=== PATIENT | female | born 1990 | race Caucasian/White ===

== ENCOUNTER 2018-04-26 14:48 | Inpatient (IN) ==
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
[2018-04-26 16:42] LABS: Bilirubin,Urine Negative (Negative); Blood,Urine Negative (Negative); Clarity,Urine Cloudy (Clear); Color,Urine Yellow (Yellow); Glucose,Urine (UA) Normal (Normal); Ketones,Urine Negative (Negative); Leukocyte Esterase,Urine Negative (Negative); Nitrite,Urine Negative (Negative); PH,Urine 6.5 pH Units (5.0-8.0); Protein,Urine Negative (Neg-Trace); Specific Gravity,Urine 1.018 (1.010-1.025); Urobilinogen,Urine Normal (Normal)
[2018-04-26 16:44] LABS: Bacteria,Urine Few per hpf (None-Few); Hyaline Casts,Urine None Seen per lpf (None-Few); RBC,Urine 0-3 per hpf (0-3); Squamous Epithelial Cell,Urine Many per lpf (None-Few); WBC,Urine 0-3 per hpf (0-3)
[2018-04-26 16:48] LABS: Amphetamine Screen,Urine Positive ng/mL (Cutoff=1000); Barbiturate Screen,Urine Negative ng/mL (Cutoff=200); Benzodiazepines Screen,Urine Negative ng/mL (Cutoff=200); Cannabinoid Screen,Urine Negative ng/mL (Cutoff = 50); Cocaine Screen,Urine Negative ng/mL (Cutoff= 300); Opiate Screen,Urine Negative ng/mL (Cutoff=300); Phencyclidine Screen,Urine Negative ng/mL (Cutoff=25)
[2018-04-26 17:18] LABS: Basophils # 0.1 K/mcL (0.0-0.2); Basophils % 0.5 %; Eosinophils # 0.2 K/mcL (0.0-0.6); Eosinophils % 1.3 %; Hematocrit 36.6 % (35.3-44.9); Hemoglobin 12.2 g/dL (11.5-15.4); Immature Granulocytes % 0.2 % (0-4); Lymphocytes # 2.6 K/mcL (0.6-4.6); Mean Corpuscular HGB Conc 33.3 g/dL (31.6-35.5); Mean Corpuscular Hemoglobin 28.7 pg (28.0-33.3); Mean Corpuscular Volume 86.1 fL (83.0-100.0); Mean Platelet Volume 11.8 fL (9.4-12.4); Monocytes # 0.7 K/mcL (0.0-1.3); Monocytes % 5.9 %; Neutrophils # 7.7 K/mcL (1.6-8.9); Platelet Count 240 K/mcL (140-400); Red Blood Count 4.25 M/mcL (3.82-4.97); Red Cell Distribution Width 14.4 % (11.5-14.5); Segmented Neutrophils % 69.1 %
[2018-04-26 17:25] LABS: Acetaminophen < 10 mcg/mL (10-20); BUN/Creatinine Ratio 17 (6-26); Blood Urea Nitrogen 9 mg/dL (6-20); Calcium 9.1 mg/dL (8.6-10.3); Carbon Dioxide 26 mEq/L (23-29); Chloride 103 mEq/L (98-107); Ethanol < 10 mg/dL (Less than 10); Glucose 98 mg/dL (70-105); Osmolality,Calculated 283 (280-300); Potassium 3.8 mEq/L (3.5-5.1); Salicylate < 2.5 mg/dL (15.0-30.0); Sodium 137 mEq/L (136-145); eGFR For Non-African Americans > 60 (> 60)
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
[2018-04-26] MEDS ORDERED: traZODone 50 MG TABLET PO PRN (21:19)
[2018-04-26] MEDS ORDERED: Haloperidol Lactate 5 MG/ML VIAL IM PRN (21:19)
[2018-04-26] MEDS ORDERED: *HR* LORazepam 2 MG/ML VIAL IM PRN (21:19)
[2018-04-26] MEDS ORDERED: Mag Hydrox/Al Hydrox/Simeth 30 ML UDC PO PRN (21:19)
[2018-04-26] MEDS ORDERED: MOM Conc 10 ML UD.LIQ PO PRN (21:19)
[2018-04-26] MEDS ORDERED: *HR* LORazepam 1 MG TABLET PO PRN (21:19)
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
[2018-04-27] MEDS: Gabapentin 300 MG CAPSULE PO SCH ×2 (14:33→20:17)
[2018-04-27] MEDS: *HR* Buprenorphine HCl 8 MG TAB.SUBL SL SCH (14:33)
[2018-04-27] MEDS: Ibuprofen 400 MG TABLET PO PRN (21:38)
[2018-04-28] MEDS: Gabapentin 300 MG CAPSULE PO SCH ×3 (08:58→20:32)
[2018-04-28] MEDS: *HR* Buprenorphine HCl 8 MG TAB.SUBL SL SCH (08:58)
[2018-04-28] MEDS: Ibuprofen 400 MG TABLET PO PRN ×2 (09:41→17:18)
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
[2018-04-28] MEDS ORDERED: Baclofen 10 MG TABLET PO PRN (16:17)
[2018-04-28] MEDS: Baclofen 10 MG TABLET PO PRN (18:46)
[2018-04-28] MEDS: hydrOXYzine pamoate 25 MG CAPSULE PO PRN (20:33)
[2018-04-29] MEDS: Gabapentin 300 MG CAPSULE PO SCH ×3 (09:01→20:12)
[2018-04-29] MEDS: *HR* Buprenorphine HCl 8 MG TAB.SUBL SL SCH ×2 (09:01→20:12)
[2018-04-29] MEDS: Venlafaxine XR (24 HR) 75 MG CAP.ER.24H PO SCH (09:01)
[2018-04-29] MEDS: Ibuprofen 400 MG TABLET PO PRN ×2 (10:13→20:12)
[2018-04-29] MEDS: Baclofen 10 MG TABLET PO PRN ×2 (10:14→14:55)
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
[2018-04-29] MEDS: hydrOXYzine pamoate 25 MG CAPSULE PO PRN ×2 (14:44→20:12)
[2018-04-30] MEDS: Venlafaxine XR (24 HR) 75 MG CAP.ER.24H PO SCH (09:32)
[2018-04-30] MEDS: Gabapentin 300 MG CAPSULE PO SCH ×3 (09:32→20:27)
[2018-04-30] MEDS: *HR* Buprenorphine HCl 8 MG TAB.SUBL SL SCH ×2 (09:33→20:27)
[2018-04-30] MEDS: Ibuprofen 400 MG TABLET PO PRN ×2 (10:39→20:28)
[2018-04-30] MEDS: hydrOXYzine pamoate 25 MG CAPSULE PO PRN ×2 (11:57→20:28)
[2018-04-30] MEDS: Baclofen 10 MG TABLET PO PRN (11:58)
[2018-04-30] MEDS ORDERED: Baclofen 10 MG TABLET PO PRN (17:12)
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
[2018-04-30] MEDS: Topiramate 25 MG TABLET PO SCH (20:28)
[2018-05-01] MEDS: Gabapentin 300 MG CAPSULE PO SCH (09:03)
[2018-05-01] MEDS: Topiramate 25 MG TABLET PO SCH (09:04)
[2018-05-01] MEDS: *HR* Buprenorphine HCl 8 MG TAB.SUBL SL SCH (09:04)
[2018-05-01] MEDS: Venlafaxine XR (24 HR) 75 MG CAP.ER.24H PO SCH (09:04)
[2018-05-01 09:09] VITALS: BP 106/68
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
== END 2018-05-01 12:45 | disposition home or self-care (01) | DRG 755 ==
LOC: EMEROOARM 14:48 → 1ANU 19:25
PROVIDERS: ADMIT General Practice; ATTEND General Practice

== ENCOUNTER 2019-07-21 23:32 | Observation (INO) ==
[2019-07-22] MEDS ORDERED: Naloxone 0.4 MG/ML INJ IVP PRN (02:53)
[2019-07-22] MEDS ORDERED: Ondansetron 4 MG/2 ML VIAL IVP PRN (02:53)
[2019-07-22] MEDS ORDERED: Ondansetron ODT 4 MG TAB.RAPDIS SL PRN (02:53)
[2019-07-22] MEDS ORDERED: 0.9 % Sodium Chloride 1,000 ML IVC SCH (03:00)
[2019-07-22] MEDS: *HR* Promethazine 25 MG/ML VIAL IVP PRN ×3 (03:39→16:36)
[2019-07-22] MEDS: Ampicillin/Sulbactam 3,000 MG in 0.9 % Sodium Chloride Mini Bag 100 ML IVPB SCH ×4 (03:45→21:57)
[2019-07-22 03:52] LABS: Basophils % 0.3 %; Eosinophils # 0.2 K/mcL (0.0-0.6); Eosinophils % 1.5 %; Hematocrit 36.5 % (35.3-44.9); INR 1.1; Immature Granulocytes % 0.2 % (0-4); Lymphocytes # 2.9 K/mcL (0.6-4.6); Mean Corpuscular HGB Conc 32.9 g/dL (31.6-35.5); Mean Corpuscular Hemoglobin 29.2 pg (28.0-33.3); Mean Corpuscular Volume 88.8 fL (83.0-100.0); Mean Platelet Volume 11.2 fL (9.4-12.4); Monocytes # 0.7 K/mcL (0.0-1.3); Monocytes % 6.6 %; Neutrophils # 6.6 K/mcL (1.6-8.9); Platelet Count 302 K/mcL (140-400); Prothrombin Time 12.3 Seconds (9.4-12.1); Red Blood Count 4.11 M/mcL (3.82-4.97); Red Cell Distribution Width 12.7 % (11.5-14.5); Segmented Neutrophils % 63.4 %; White Blood Count 10.4 K/mcL (4.3-11.1)
[2019-07-22 04:07] LABS: % Iron Saturation 12 % (15-50); Alanine Aminotransferase 9 Units/L (7-52); Albumin 3.9 g/dL (3.5-5.7); Albumin/Globulin Ratio 1.6 (1.1-2.2); Alkaline Phosphatase 41 Units/L (34-104); Aspartate Amino Transferase 11 Units/L (13-39); BUN/Creatinine Ratio 15 (6-26); Bilirubin,Total 0.3 mg/dL (0.3-1.0); Blood Urea Nitrogen 10 mg/dL (6-20); Calcium 8.7 mg/dL (8.6-10.3); Carbon Dioxide 27 mEq/L (23-29); Chloride 106 mEq/L (98-107); Chol/HDL Ratio 3.3 (0-4.9); Cholesterol 163 mg/dL (< 200); Globulin 2.5 g/dL (2.4-3.5); Glucose 101 mg/dL (70-105); HDL Cholesterol 50 mg/dL (40-59); Iron 51 mcg/dL (50-170); LDL Cholesterol,Calculated 81 mg/dL (0-99); Magnesium 1.6 mg/dL (1.6-2.6); Osmolality,Calculated 291 (280-300); Phosphorous 2.7 mg/dL (2.7-4.5); Potassium 3.5 mEq/L (3.5-5.1); Sodium 141 mEq/L (136-145); Total Protein 6.4 g/dL (6.4-8.9); Transferrin 296 mg/dL (203-362); Triglycerides 160 mg/dL (< 150); eGFR For African Americans > 60 (> 60); eGFR For Non-African Americans > 60 (> 60)
[2019-07-22 04:19] LABS: Thyroid Stimulating Hormone 1.622 mcIU/mL (0.340-5.600)
[2019-07-22 04:25] LABS: Ferritin 39 ng/mL (10-120)
[2019-07-22] MEDS: Acetaminophen IV 1,000 MG/100 ML INFUS..BTL IVPB PRN ×2 (04:44→10:36)
[2019-07-22 05:26] LABS: Amphetamine Screen,Urine Negative ng/mL (Cutoff=1000); Barbiturate Screen,Urine Negative ng/mL (Cutoff=200); Benzodiazepines Screen,Urine Negative ng/mL (Cutoff=200); Cannabinoid Screen,Urine Negative ng/mL (Cutoff = 50); Cocaine Screen,Urine Negative ng/mL (Cutoff= 300); Opiate Screen,Urine Negative ng/mL (Cutoff=300); Phencyclidine Screen,Urine Negative ng/mL (Cutoff=25)
[2019-07-22] MEDS ORDERED: Morphine Sulfate 2 MG/ML SYRINGE IVP ONE (05:51)
[2019-07-22] MEDS: Pantoprazole 40 MG VIAL IVP SCH ×2 (06:17→18:38)
[2019-07-22] MEDS ORDERED: MetroNIDAZOLE 500 MG/100 ML 500 MG/100 ML BAG IVPB SCH (08:00)
[2019-07-22 08:42] LABS: Estimated Average Glucose 120 mg/dl
[2019-07-22] MEDS ORDERED: Lidocaine -MPF 2% 2 ML VIAL ONE ×2 (13:57→14:20)
[2019-07-22] MEDS ORDERED: *HR* Propofol 200 MG/20 ML VIAL IVP ONE (14:20)
[2019-07-22] MEDS: 0.9 % Sodium Chloride 1,000 ML IVC SCH (14:40)
[2019-07-22] MEDS: Sucralfate 1 GM TABLET PO SCH ×2 (16:36→20:18)
[2019-07-22] MEDS: Acetaminophen 325 MG TABLET PO PRN ×2 (16:36→21:57)
[2019-07-23] MEDS: Acetaminophen 325 MG TABLET PO PRN ×2 (04:49→12:53)
[2019-07-23] MEDS: Pantoprazole 40 MG VIAL IVP SCH (04:50)
[2019-07-23] MEDS: *HR* Promethazine 25 MG/ML VIAL IVP PRN (04:50)
[2019-07-23] MEDS: Ampicillin/Sulbactam 3,000 MG in 0.9 % Sodium Chloride Mini Bag 100 ML IVPB SCH (04:51)
[2019-07-23] MEDS: 0.9 % Sodium Chloride 1,000 ML IVC SCH (04:52)
[2019-07-23 05:58] LABS: Hematocrit 33.7 % (35.3-44.9); Hemoglobin 11.2 g/dL (11.5-15.4); Mean Corpuscular HGB Conc 33.2 g/dL (31.6-35.5); Mean Corpuscular Hemoglobin 28.8 pg (28.0-33.3); Mean Corpuscular Volume 86.6 fL (83.0-100.0); Mean Platelet Volume 11.5 fL (9.4-12.4); Platelet Count 279 K/mcL (140-400); Red Blood Count 3.89 M/mcL (3.82-4.97); Red Cell Distribution Width 12.8 % (11.5-14.5)
[2019-07-23 06:19] LABS: BUN/Creatinine Ratio 8 (6-26); Blood Urea Nitrogen 5 mg/dL (6-20); Calcium 8.3 mg/dL (8.6-10.3); Carbon Dioxide 24 mEq/L (23-29); Chloride 108 mEq/L (98-107); Glucose 83 mg/dL (70-105); Magnesium 1.6 mg/dL (1.6-2.6); Osmolality,Calculated 290 (280-300); Phosphorous 2.8 mg/dL (2.7-4.5); Potassium 3.7 mEq/L (3.5-5.1); Sodium 142 mEq/L (136-145); eGFR For African Americans > 60 (> 60); eGFR For Non-African Americans > 60 (> 60)
[2019-07-23 06:33] VITALS: BP 101/64
[2019-07-23] MEDS: Sucralfate 1 GM TABLET PO SCH (12:54)
== END 2019-07-23 16:08 | disposition home or self-care (01) ==
LOC: 3ANU → SUATTDRO 07-22 01:26
PROVIDERS: ADMIT Family Medicine; ATTEND Internal Medicine
PROC: ENDOEBX (2019-07-22 14:40)